=== PATIENT | female | born 1945 | race Caucasian/White ===

== ENCOUNTER 2021-07-08 19:07 | Emergency (ER) | payer SELFPAY ==
[2021-07-08] VITALS (10 sets, daily range): BP systolic 131–153; BP diastolic 63–90; PULSE 84–97; RESP 20–26; TEMP 36.7–37.1; O2SAT 96–100
--- NOTE | ~2021-07-08 | CT_ITS ---
EXAMINATION: CT brain wo [facility] EXAM DATE: 07/08/2021 20:02 INDICATION: Dizziness, slurred speech. TECHNIQUE: Spiral CT of the head was performed without contrast. Axial, coronal and sagittal images were reviewed. The dose-length product (DLP) for this examination was 605.33 mGy-cm. The exposure w as tailored according to patient size, and iterative reconstruction (ASIR) was used as additional dos e reduction technique. There is no prior study for comparison. FINDINGS: There is no acute intraparenchymal hemorrhage. No evidence of intraparenchymal brain mass lesion. No evidence of acute infarction. Please note that initial head CT has limited sensitivity f or small or acute infarctions. There is moderate periventricular and subcortical hypodensity, nonspec ific but probably related to small vessel ischemic disease. There is prominence of the sulci and ve ntricles related to cerebral atrophy. There is intracranial carotid arteriosclerosis. There are no extra-axial collections. There is no mass effect or midline shift. The orbits are unremarkable. S oft tissue is unremarkable. The visualized sinuses and mastoid air cells are well aerated. IMPRESSION: 1. No acute intracranial findings. 2. Chronic age related findings. Reviewed, dictated and finalized at location A.
--- NOTE | 2021-07-08 19:16 | ECG_ITS ---
Measurements Intervals [place] Rate: 94 P: -1 IL: 164 QRS: -15 QRSD: 81 T: 53 QT: 308 QTc: 386 Interpretive Statements SINUS RHYTHM WITH SINUS ARRHYTHMIA INCOMPLETE RIGHT BUNDLE BRANCH BLOCK DELAYED PRECORDIAL R/S TRANSITION LOW QRS VOLTAGE IN PRECORDIAL LEADS BORDERLINE T WAVE ABNORMALITY- ANTEROLATERAL LEADS BORDERLINE ECG Electronically Signed On 07-09-2021 6:08:24 CDT by Tramaine Whitt D.O.
[2021-07-08 19:41] LABS: Basophils Percent Auto 0.1 % (0.2-1.2); Eosinophils Percent Auto 0.1 % (0-4.4); Hematocrit 38.5 % (37.0-47.0); Hemoglobin 12.1 g/dL (12.0-15.0); Immature Granulocyte Absolute 0.03 K/mm3 (0.00-0.031); Immature Granulocyte Percent A 0.3 % (0-0.5); Lymphocytes Absolute Auto 0.59 K/mm3 (0.9-3.2); Lymphocytes Percent Auto 6.4 % (18.3-44.2); Mean Corpuscular HGB Conc 31.4 g/dl (32-36); Mean Corpuscular Hemoglobin 24.1 pg (26-34); Mean Corpuscular Volume 76.5 fl (80-100); Mean Platelet Volume 10.6 fl (7.4-10.4); Monocytes Percent Auto 11.1 % (2.6-8.5); Neutrophils Absolute Auto 7.6 K/mm3 (1.3-6.7); Platelet Count Result 149 k/mm3 (150-375); Red Blood Count 5.03 M/mm3 (4.2-5.4); Red Cell Distribution Width 16.6 % (11.5-14.5); White Blood Count 9.2 K/mm3 (4.5-10.0)
[2021-07-08 19:52] LABS: Alanine Aminotransferase 13 U/L (4-35); Albumin Level 4.4 g/dL (3.5-5.1); Alkaline Phosphatase 79 U/L (38-126); Anion Gap 11 mmol/L (8-16); Aspartate Amino Transferase 25 U/L (14-36); Bilirubin,Total 1.3 mg/dL (0.2-1.3); Blood Urea Nitrogen 17 mg/dL (7-17); Calcium 9.9 mg/dL (8.4-10.2); Carbon Dioxide 21 mmol/L (22-30); Chloride 101 mmol/L (98-107); Estimated CRCL calculation 29 ml/min; Estimated Glomerular Filt Rate 40; Glucose 132 mg/dL (65-110); Sodium 133 mmol/L (137-145)
[2021-07-08 20:23] LABS: NT Pro B Type Natriuretic Pept 766 pg/mL (5-100); Troponin I < 0.012 ng/mL (0.000-0.034)
--- NOTE | 2021-07-08 20:28 | ED.GENADULT ---
HPI - General Adult General Chief complaint: Unspecified Stated complaint: Dizzy Time Seen by Provider: 07/08/21 19:36 Source: patient and family Mode of arrival: ambulatory Limitations: no limitations History of Present Illness HPI narrative: 75-year-old with anxiety and depression brought in by family with complaints of dizziness for past 2 days. Patient states that every time she sits up or stands up she feels extremely dizzy. She also states that she was nauseated unable to eat or drink. She states that she has not had water for 2 days. She denies any chest pain or shortness of breath. Denies headache. Onset (ago): day(s) (2) Severity: moderate Pain Consistency: constant Relieving factors: none Exacerbating factors: none and movement Associated symptoms: denies other symptoms Related Data Home Medications Medication Instructions Recorded Confirmed estradiol mg 07/08/21 gabapentin 07/08/21 meloxicam 07/08/21 montelukast mg 07/08/21 omeprazole 07/08/21 sertraline mg 07/08/21 Allergies Allergy/AdvReac Type Severity Reaction Status Date / Time No Known Allergies Allergy Verified 07/08/21 20:25 Review of Systems Review of Systems: All systems reviewed & are unremarkable except as noted in HPI and below Constitutional: Constitutional: Reports no additional constitutional complaints Eyes: Eyes: Reports no additional eye complaints ENT: Reports system reviewed and no additional complaints, except as documented Cardiovascular: Cardiovascular: Reports no additional cardiovascular complaints Respiratory: Respiratory: Reports no additional respiratory complaints Gastrointestinal: Gastrointestinal: Reports as per HPI Musculoskeletal: Musculoskeletal: Reports no additional musculoskeletal complaints Integumentary/Breasts: Skin/Breast: Reports system reviewed and no additional complaints, except as docu Neurologic: Reports system reviewed and no additional complaints, except as documented Exam Narrative: GENERAL: Well-appearing, well-nourished, and in no acute distress. HEAD: Normocephalic, atraumatic. EYES: PERRLA and EOMI. ENT: Dry oral mucosa. NECK: Supple. CHEST: Clear to auscultation. No respiratory distress. HEART: Regular rate and rhythm. No murmur heard. Normal peripheral pulses. ABDOMEN: Soft, nontender, nondistended, normal active bowel sounds. EXTREMITIES: Normal range of motion. No edema. SKIN: Warm, dry, no rash. NEURO: No focal deficits. Alert and oriented x3. PSYCH: Normal mood and affect. Course Course Emergency Course: Inform patient about her lab work, CT findings patient does not want to be admitted to the hospital. Will gently hydrate. Vital Signs Vital signs: Vital Signs Temperature 36.7 C 07/08/21 19:13 Pulse Rate 96 07/08/21 19:13 Respiratory Rate 20 07/08/21 19:13 Blood Pressure 148/73 H 07/08/21 19:13 Pulse Oximetry 99 07/08/21 19:13 Temperature 37.1 C 07/08/21 19:45 Pulse Rate 96 07/08/21 19:13 Respiratory Rate 20 07/08/21 19:13 Blood Pressure 148/73 H 07/08/21 19:13 Pulse Oximetry 99 07/08/21 19:13 Medical Decision Making Vital Signs Vital Signs: Vital Signs Temperature 36.7 C 07/08/21 19:13 Pulse Rate 96 07/08/21 19:13 Respiratory Rate 20 07/08/21 19:13 Blood Pressure 148/73 H 07/08/21 19:13 Pulse Oximetry 99 07/08/21 19:13 Temperature 37.1 C 07/08/21 19:45 Pulse Rate 96 07/08/21 19:13 Respiratory Rate 20 07/08/21 19:13 Blood Pressure 148/73 H 07/08/21 19:13 Pulse Oximetry 99 07/08/21 19:13 Lab Data Result diagrams: 07/08/21 19:35 07/08/21 19:35 Labs: Lab Results 07/08/21 07/08/21 07/08/21 Range/Units 19:35 19:35 19:35 WBC 9.2 (4.5-10.0) K/mm3 RBC 5.03 (4.2-5.4) M/mm3 Hgb 12.1 (12.0-15.0) g/dL Hct 38.5 (37.0-47.0) % MCV 76.5 L (80-100) fl MCH 24.1 L (26-34) pg MCHC 31.4 L (32-36) g/dl RDW 16.6 H
[2021-07-08] MEDS: SODIUM CHLORIDE 0.9% IV 1,000 ML 999 ML IV CONT (20:30)
[2021-07-08 20:43] LABS: Add Urine Microscopic? YES; Appearance Urine Cloudy (Clear); Bacteria Urine Trace /hpf; Bilirubin Urine Negative (Negative); Blood Urine 2+ (Negative); Budding Yeast Urine Present /hpf; Color Urine Yellow (Yellow); Glucose Urine UA Negative (Negative); Ketones Urine Trace mg/dL (Negative); Leukocyte Esterase Ur 3+ LEU/UL (Negative); Nitrate Urine Negative (Negative); Protein Urine 2+ mg/dL (Negative); Specific Grav Ur 1.016 (1.001-1.035); Squamous Epithelial Cell Urine Few /hpf (Few); Urobilinogen Urine Negative mg/dL (<2.0); WBC Urine >75 /hpf
[2021-07-08 20:45] LABS: INR 1.4; Prothrombin Time 16.5 Seconds (11.1-14.7)
--- NOTE | 2021-07-08 21:30 | PC.NURSE ---
Impulsive, trying to exit stretcher from foot of stretcher while nurse actively at bedside. Encouraged to slow down to avoid falls.
--- NOTE | 2021-07-08 21:42 | PC.NURSE ---
Refuses Meclizine and Lorazepam, states it'll make me too tired .
== END 2021-07-08 22:15 | disposition home or self-care (01) ==
PROVIDERS: Family Medicine; Emergency Provider Emergency Medicine
DX: R42 Dizziness and giddiness (principal); I45.10 Unspecified right bundle-branch block; R94.31 Abnormal electrocardiogram [ECG] [EKG]
CPT/HCPCS: 36415; 70450; 80053; 81001; 83880; 84484; 85025; 85610; 87077; 87086; 87088; 93005; 96361; 96365; 99284; J0696; J7030